=== PATIENT | male | born 1970 | race Caucasian/White ===

== ENCOUNTER 2021-09-18 16:10 | Outpatient (CLI) | payer OTHER ==
--- NOTE | 2021-09-18 16:39 | XRAY Report ---
PROCEDURE: Chest 2 View X-Ray INDICATIONS: SHORTNESS OF BREATH, CYSTIC FIBROSIS TECHNIQUE: 2 view(s) of the chest. COMPARISON: None. FINDINGS: Surgical changes and devices: None. Lungs and pleura: No pleural effusions or pneumothorax. Lungs are clear. Mediastinum: Mediastinal contours are normal. Heart size is normal. Bones and chest wall: No suspicious bony abnormalities. Soft tissues appear unremarkable. IMPRESSION: No focal infiltrates are seen. Note: Case discussed by telephone with Marci Arreaga at 3:37 PM [place] time on 09/18/2021. Reviewed by: Mason Luevano MD on 09/18/2021 3:37 PM [place] Approved by: Mason Luevano MD on 09/18/2021 3:37 PM [facility] Station ID: [id number]
== END 2021-09-18 16:11 | disposition home or self-care (01) ==
LOC: DI 16:10
PROVIDERS: ATTEND Nurse Practitioner Family
DX: R06.02 Shortness of breath (principal); R07.9 Chest pain, unspecified; E84.9 Cystic fibrosis, unspecified